=== PATIENT | male | born 1985 | race Caucasian/White ===

== ENCOUNTER → 2017-03-08 | Outpatient (CLI) | payer OTHER ==
--- NOTE | 2017-03-08 11:19 | RAD ---
HISTORY: Coccygeal pain Study: AP and lateral sacrum and coccyx Comparison: None Findings: The sacrum, coccyx, and SI joints to the extent visualized are normal. IMPRESSION: No significant abnormality identified Reported By:
== END ==
LOC: RAD 10:40
PROVIDERS: ATTEND Orthopaedic Surgery
DX: M53.3 Sacrococcygeal disorders, not elsewhere classified (principal)
CPT/HCPCS: 72220

== ENCOUNTER → 2017-06-17 | Outpatient (CLI) | payer OTHER ==
--- NOTE | 2017-06-20 11:53 | MRI ---
MRI pelvis without contrast Indication: Sacral coccygeal disorder Technique: Multisequence, multiplanar MR images of the pelvis were obtained without IV contrast. Comparison: Radiograph 03/08/2017 Findings: Visualized marrow signal is normal. No acute fracture, malalignment, suspicious osseous les ion or osteonecrosis of either hip is identified. There is very mild degenerative arthrosis of the bi lateral hips, as evidenced by small marginal osteophyte formation along the inferior medial femoral h ead/neck junctions. No significant joint space narrowing, effusion or discrete paralabral cyst of eit her hip is otherwise identified. The SI joints and pubic symphysis are within normal limits. The sacr um and coccyx are normal as well. Specifically, no significant edema or effusion is appreciated at th e sacrococcygeal junction. The visualized lower lumbar spine is unremarkable. The imaged myotendinous structures about the bilateral hips and pelvis are unremarkable. There is a s mall, fat containing right inguinal hernia. The imaged contents of the lower abdomen and pelvis other campos demonstrate no gross unexpected findings. 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 Otherwise, essentially unremarkable noncontrast MRI examination of the sacrococcygeal junction/pelvis. Small fat containing right inguinal hernia. Reported By:
== END ==
LOC: RAD 10:35
PROVIDERS: ATTEND Orthopaedic Surgery
DX: M53.3 Sacrococcygeal disorders, not elsewhere classified (principal)
CPT/HCPCS: 72195